=== PATIENT | female | born 1975 | race Asian ===

== ENCOUNTER → 2017-03-26 | Outpatient (CLI) | payer OTHER ==
--- NOTE | 2017-03-26 09:11 | KCIC ---
THYROID ULTRASOUND History: Hypothyroidism Comparison: None. Findings: Multiple sonographic images of the thyroid gland are submitted. Right lobe measured 4.4 x 1.4 x 1.9 cm. The left lobe measured 4.6 x 1.3 x 1.7 cm. No discrete nodularity is demonstrated although, has a somewhat nodular appearance. There is heterogeneity of the thyroid parenchyma bilaterally. Isthmus measured 0.2 cm in thickness. Impression: 1. There is diffuse heterogeneity of the thyroid parenchyma bilaterally, discrete nodule not demonstrated although the parenchyma has a somewhat nodular appearance. Electronically signed by: Gilberto Noonan MD (03/26/2017 9:07 AM) [id number]
== END | disposition home or self-care (01) ==
LOC: KCIC US 07:44
PROVIDERS: ATTEND Family Medicine
DX: E03.9 Hypothyroidism, unspecified (principal)
CPT/HCPCS: 76536